=== PATIENT | female | born 1970 | race Caucasian/White ===

== ENCOUNTER 2023-06-26 11:54 | Day surgery (SDC) | payer MEDICARE, MEDICAID, SELFPAY ==
[2023-06-26 12:12] VITALS: BP 105/65; PULSE 67; RESP 16; TEMP 36.4; O2SAT 98; BMI 28.5
[2023-06-26] MEDS: Lactated Ringers 1,000 ML 15 ML IV (12:20)
[2023-06-26] MEDS: Cefazolin 2 GM in 0.9% Normal Saline 100 ML IV (12:34)
[2023-06-26] MEDS: Lidocaine 1% (20 ml mdv) 20 ML Vial (12:55)
[2023-06-26] MEDS: Bupivacaine Mpf 0.5% 30 ML VIAL (12:55)
[2023-06-26 13:55] VITALS: BP 105/65; BP 127/65; PULSE 72; RESP 16; TEMP 36.3; O2SAT 96
[2023-06-26 14:00] VITALS: BP 105/65; BP 126/65; PULSE 68; RESP 16; O2SAT 95
--- NOTE | 2023-06-26 14:08 | DCINST_ITS ---
Discharge Instructions Follow Up Care Test Results: Test results from this visit will be discussed in further detail at your follow- up appointment, if applicable. Discharge Plan Admission Attending Provider: Prakash Duffy Primary Care Provider: Rk Root Discharge Orders/Prescriptions Prescriptions: No Action morphine 15 mg tablet 15 mg PO Q12H buspirone 15 mg tablet 15 mg PO BID zolpidem 10 mg tablet 10 mg PO QHS Xarelto 20 mg tablet 20 mg PO Q24H Patient Comments: TAKE 1 TABLET BY MOUTH ONCE DAILY DIRECTED gabapentin 800 mg tablet 800 mg PO 4X/DAY Xtampza ER 27 mg cap,sprinkl,ER12hr(DONT CRUSH) 27 mg PO BID Rx Instructions: must administer with a meal/food bupropion HCl 150 mg tablet sustained-release 12 hr 150 mg PO Q12H nabumetone 750 mg tablet 750 mg PO DAILY doxepin 10 mg capsule 20 mg PO BID Patient Comments: TAKE 2 CAPSULES BY MOUTH IN THE MORNING AND TAKE 1 CAPSULE AT NIGHT ondansetron HCl 4 mg tablet 4 mg PO Q12H PRN (Reason: nausea) esomeprazole magnesium 40 mg capsule,delayed release(DR/EC) 40 mg PO DAILY promethazine 25 mg tablet 25 mg PO Q12H PRN (Reason: nausea) topiramate 100 mg tablet 100 mg PO Q12H propranolol 20 mg tablet 20 mg PO DAILY Referrals / Follow Up: Rk Root DO [Primary Care Provider] - Disposition Disposition (needs filled in before D/C Order can be placed): Home, Self Care
--- NOTE | 2023-06-26 14:10 | PCM.OPRPT ---
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 General anesthesia was administered and local anesthetic was injected in the surgical areas. The foot and lower leg were prepped and draped in usual sterile fashion. Elevated and exsanguinated. An tourniquet was inflated. Attention was directed to the dorsal medial first metatarsal phalangeal joint where a linear incision was made deepened by sharp and blunt dissection. Taking care to retract 0 vital structures and Bovie bleeders as necessary. Lateral capsulotomy and fibular sesamoid release with abductor tendon release was performed. The toe was easily reducible. There is a very large dorsal medial prominence where there is a chronic ulceration this was resected with a saw. Attention was now directed proximally to the first tarsometatarsal joint. Linear incision was made and deepened by sharp and blunt dissection taking care to retract preserve all vital structures and Bovie bleeders as necessary. A periosteal and capsular incision was made draining from it from side to side. The joint was gained access to the joint prep kit was used from [employer]. The cartilage was completely removed subchondral drilling was performed. The first metatarsal was corrected in all 3 planes and then pinned from distal medial to proximal lateral across the second there is good correction therefore a headed cannulated 4.0 millimeters screw was inserted reducing the intermetatarsal angle and providing stable fixation. A 4-hole [employer] plate was then placed over the fusion site. 4 locking screws were inserted. There is good bone bone apposition and fixation. Originally the second tarsometatarsal joint was going to be fused separately but there was enough stability at this point that I did not see fit to create any more incisional areas are difficult to heal areas as she has had some difficulty with healing in the past. The wounds were flushed copious amounts normal saline solution. Deep tissue was closed with Vicryl. Skin was closed with nylon. Dry sterile dressing was applied. Tourniquet was deflated and full vascular status was restored to the foot and its digits. Grafts/Implants Used: [place] plate/screws Complications None Admit VTE Documentation VTE Present on Admission: Yes VTE Mechan Device Prophylaxis: SCD's VTE Pharm Prophylaxis ordered?: No Reason prophylaxis not ordered:: Treatment Not Indicated
[2023-06-26 14:15] VITALS: BP 105/65; BP 131/72; PULSE 66; RESP 16; O2SAT 97
[2023-06-26 14:30] VITALS: BP 105/65; BP 128/73; PULSE 70; RESP 16; TEMP 36.6; O2SAT 97
[2023-06-26 14:47] VITALS: BP 105/65
[2023-06-27 08:06] LABS: Bedside Glucose 134 mg/dL (74-106)
== END 2023-06-26 14:56 | disposition home or self-care (01) ==
LOC: SDC 11:58 → AC 11:59
PROVIDERS: Referring Provider Podiatrist Foot & Ankle Surgery; Visit Provider Podiatrist Foot & Ankle Surgery
PROC: (CPT 28292; principal; 2023-06-26 13:15)
DX: M20.12 Hallux valgus (acquired), left foot (principal); E11.9 Type 2 diabetes mellitus without complications; M19.072 Primary osteoarthritis, left ankle and foot; G89.29 Other chronic pain; I10 Essential (primary) hypertension; E78.2 Mixed hyperlipidemia; F32.A Depression, unspecified; F41.9 Anxiety disorder, unspecified; Z87.891 Personal history of nicotine dependence
CPT/HCPCS: 28292; 01480; 82962; C1713; J7120; J2405

== ENCOUNTER 2023-12-11 11:40 | Day surgery (SDC) | payer MEDICARE, MEDICAID, SELFPAY ==
--- NOTE | 2023-12-11 12:29 | RAD_ITS ---
STUDY: X-RAY - RIGHT FOOT CLINICAL: Female, 53 years old. LAPIDUS JOINT FUSION, RIGHT FOOT TECHNIQUE: 2 fluoroscopic guided view(s) of the foot. COMPARISON: None. FINDINGS: 2 films were obtained utilizing fluoroscopic guidance status post Lapidusd joint fusion of the right foot utilizing 3 seconds of fluoroscopic time. More complete information recommend correlation with surgical surgical notes RAD/Foot min 3 Views IMPRESSION: Postsurgical changes. Electronically Signed: Ricki Kathleen MD at 19:54 EST ,
[2023-12-11] MEDS: Cefazolin 2 GM in 0.9% Normal Saline (100mL Bag) 100 ML IV (12:37)
[2023-12-11 12:38] VITALS: BP 131/67; PULSE 45; RESP 18; TEMP 36.4; O2SAT 100; BMI 28.4
[2023-12-11] MEDS: Bupivacaine Mpf 0.5% 30 ML VIAL (13:04)
[2023-12-11 14:34] VITALS: BP 122/67; BP 131/67; PULSE 55; RESP 16; TEMP 36.6; O2SAT 92
[2023-12-11 14:35] VITALS: BP 131/67; BP 138/66; PULSE 66; RESP 16; O2SAT 93
--- NOTE | 2023-12-11 14:36 | PCM.OPRPT ---
Report of Operation Date of Procedure: 12/11/23 Pre-Operative Diagnosis: HAV and midfoot arthrosis, right foot Post-Operative Diagnosis: same Surgery/Procedure Performed:: lapidus fusion, fusion 1st cun met, fusion 2nd and 3rd TMT Surgeon: Prakash Duffy Type of Anesthesia: General/Regional Estimated Blood Loss (mL): 5ml Description of Procedure: Patient was brought to the operating room placed on table supine position general anesthesia was administered. Foot prepped draped usual sterile fashion L and exsanguinated and the tourniquet was inflated. 3 cm linear incision was made over the first metatarsal phalangeal joint deepened by blunt dissection. The lateral capsule fibular sesamoid and abductor tendon were released and the toe was easily reducible at this point. Attention was directed more proximally where an incision was made over the first tarsometatarsal joint extending proximally over the first cuneiform navicular joint was deepened by sharp and blunt dissection taking care to retract and preserve us all vital structures structures and Bovie bleeders as necessary. Periosteal and capsular incision was made freeing it from [id number] exposing both joints. Joint prep kit from the [employer] set was used to remove any cartilage on mating surfaces of both the first TMT and the first navicular cuneiform joint. Saw was used to create a small osteotomy to create to close down the first met intermetatarsal angle. 4.0 guidewire for the [employer] screw was inserted from the medial base of the first metatarsal into the second and third metatarsals and cuneiforms the screw was inserted effectively closing down the intermetatarsal angle and securing the first second and third metatarsals in appropriate position. A dorsal 4-hole plate from [employer] was applied over the first tarsometatarsal joint using 3 locking screws and then 1 nonlocking screw that extended proximally across the first cuneiform navicular joint. Another 4.0 screw was then driven across to the medial first cuneiform into the navicular through cannulated technique. There is good bone to bone apposition apposition and fixation prior to fusion of the sites subchondral drilling was performed and demineralized bone matrix was inserted attention was directed to the midfoot where a dorsal linear incision was made over the second and third tarsometatarsal bases deepened by sharp and blunt dissection taking care to retract and preserve all vital structures and Bovie bleeders as necessary. A periosteal and capsular incision was made freeing it from [id number] exposing both joint lines. The previous transfixing screw from the first metatarsal was evident exiting the third metatarsal base and was not appropriate position the second tarsometatarsal joint was significantly degenerative with dorsal spurring which was removed with rongeur the joint prep kit was used to remove the remaining cartilage. Demineralized bone matrix was inserted and a cannulated 4.0 millimeter screw was inserted from the second metatarsal base into the second cuneiform. The third tarsometatarsal joint was inspected and noted to be solid with the construct that had already been performed so no fixation was driven across this joint. The wounds were flushed with copious amounts normal saline solution the deep tissue was closed with Vicryl and the skin was closed with nylon sterile dressing was applied. The patient tolerated the the operation well without any complication the tourniquet was deflated and full vascular status was restored to the foot and its digits
[2023-12-11 14:45] VITALS: BP 131/67; BP 132/72; PULSE 69; RESP 16; TEMP 36.3; O2SAT 94
[2023-12-11 14:57] LABS: Bedside Glucose 120 mg/dL (74-106)
[2023-12-11 15:50] VITALS: BP 131/67; BP 156/75; PULSE 66; RESP 16; TEMP 36.9; O2SAT 98
== END 2023-12-11 15:56 | disposition home or self-care (01) ==
LOC: SDC 11:42 → AC 11:43
PROVIDERS: Referring Provider Podiatrist Foot & Ankle Surgery; Visit Provider Podiatrist Foot & Ankle Surgery
PROC: (CPT 28725; principal; 2023-12-11 12:45)
DX: M20.11 Hallux valgus (acquired), right foot (principal); E11.9 Type 2 diabetes mellitus without complications; M19.071 Primary osteoarthritis, right ankle and foot; I10 Essential (primary) hypertension; E78.00 Pure hypercholesterolemia, unspecified; F32.A Depression, unspecified; F41.9 Anxiety disorder, unspecified; Z79.01 Long term (current) use of anticoagulants; Z79.84 Long term (current) use of oral hypoglycemic drugs; Z79.899 Other long term (current) drug therapy; Z87.891 Personal history of nicotine dependence
CPT/HCPCS: 28297; 73630; 76000; 82962; C1713; J7120; J2405